=== PATIENT | female | born 1975 | race Caucasian/White ===

== ENCOUNTER → 2017-10-13 | Outpatient (CLI) | payer OTHER ==
[~2017-10-13] MED LIST: LISI20 PO; WATER PILL
[2017-10-15 12:30] LABS: HPV Genotype 16 Not Detected (NOTDET); HPV Genotype 18 Not Detected (NOTDET)
[2017-10-20 12:27] LABS: HPV High Risk Other Not Detected (NOTDET)
== END ==
LOC: LAB 18:09
PROVIDERS: Nurse Practitioner Family
DX: Z01.419 Encounter for gynecological examination (general) (routine) without abnormal findings (principal)
CPT/HCPCS: 87624; G0123

== ENCOUNTER 2020-07-16 05:26 | Emergency (ER) | payer OTHER ==
[~2020-07-16] VITALS: Ht 154.9 cm; Wt 89.4 kg
[2020-07-16] MEDS ORDERED: VENL75ER PO (05:49)
[2020-07-16] MEDS ORDERED: TRAM50 PO (07:05)
[2020-07-16] MEDS ORDERED: Voltaren100 GM TOP (07:07)
[2020-07-16] MEDS ORDERED: Robaxin-750750 MG PO (07:07)
== END 2020-07-16 07:20 | disposition home or self-care (01) ==
LOC: ER 05:26
DX: G89.29 Other chronic pain (principal); M54.5 Low back pain; Z79.899 Other long term (current) drug therapy; Z88.1 Allergy status to other antibiotic agents
CPT/HCPCS: 99283

== ENCOUNTER 2022-11-20 09:14 | Day surgery (SDC) | payer OTHER ==
[~2022-11-20] VITALS: Ht 154.9 cm; Wt 100.6 kg
[~2022-11-20 09:14] MED LIST changes: +Robaxin-750750 MG PO; +TRAM50 PO; +VENL75ER PO; +Voltaren100 GM TOP
[2022-11-20] MEDS ORDERED: Prinivil10 MG PO (10:24)
[2022-11-20 10:27] VITALS: BP 129/66
--- NOTE | 2022-11-20 10:38 | NUR ---
Ambulatory in Day Surgery. History, Chart, Medications and Allergies reviewed before start of procedure. Lungs clear T/O to Auscultation. Patient confirms NPO status and agrees with scheduled surgery. Pre-Op teaching done. Pt verbalizes understanding. Patient States Post-Procedure ride home has been arranged.
--- NOTE | 2022-11-20 10:50 | NUR ---
PT REPORTS TO HAVE A CLITORIS PIERCING THAT CANNOT BE REMOVED. SEDATION NURSE AND DR POSEY NOTIFIED.
--- NOTE | 2022-11-20 10:59 | NUR ---
11/20/22 1059 Rashawn Hugo ANESTHESIA PER DR. MIRELES, SEE ANESTHESIA RECORD
[2022-11-20 11:17] VITALS: BP 130/74
[2022-11-20 11:30] VITALS: BP 118/70
--- NOTE | 2022-11-20 11:40 | NUR ---
Patient up to Ambulate independently. Gait steady. Discharge instructions reviewed with patient. Patient verbalizes understanding. Copy given to patient to take home. Patient States Post-Procedure ride home has been arranged. Discharged via wheelchair to private car for ride home.
== END 2022-11-20 11:40 | disposition home or self-care (01) ==
LOC: ORSCMMR 09:14 → ORD 11:30 → ORSCMMR 11:30
PROVIDERS: Internal Medicine Gastroenterology
PROC: 0DJD8ZZ Inspection of Lower Intestinal Tract, Via Natural or Artificial Opening Endoscopic (ICD-10-PCS; principal; 2022-11-20 11:30)
DX: Z12.11 Encounter for screening for malignant neoplasm of colon (principal); I10 Essential (primary) hypertension; F32.A Depression, unspecified; E66.01 Morbid (severe) obesity due to excess calories; Z68.41 Body mass index [BMI] 40.0-44.9, adult; Z98.84 Bariatric surgery status; Z79.899 Other long term (current) drug therapy
CPT/HCPCS: J2704; J7120

== ENCOUNTER 2024-08-29 02:44 | Day surgery (SDC) | payer OTHER ==
[~2024-08-29 02:44] MED LIST changes: +Prinivil10 MG PO; +Sod Ferric Gluc Complx/Sucrose 125 MG in NS 100 ML IV SCH
[2024-08-29 10:15] VITALS: BP 143/88
== END 2024-08-29 11:42 | disposition home or self-care (01) ==
LOC: ATC 02:44
DX: E61.1 Iron deficiency (principal); Z98.84 Bariatric surgery status; Z88.8 Allergy status to other drugs, medicaments and biological substances
CPT/HCPCS: 96365; J2916

== ENCOUNTER 2024-09-02 03:28 | Day surgery (SDC) | payer OTHER ==
[~2024-09-02 03:28] MED LIST changes: -Sod Ferric Gluc Complx/Sucrose 125 MG in NS 100 ML IV SCH
[2024-09-02] MEDS ORDERED: Sod Ferric Gluc Complx/Sucrose 125 MG in NS 100 ML IV SCH (06:00)
[2024-09-02 14:32] VITALS: BP 126/78
== END 2024-09-02 15:35 | disposition home or self-care (01) ==
LOC: ATC 03:28
DX: E61.1 Iron deficiency (principal); I10 Essential (primary) hypertension; K21.9 Gastro-esophageal reflux disease without esophagitis; Z88.1 Allergy status to other antibiotic agents; Z79.899 Other long term (current) drug therapy
CPT/HCPCS: 96365; J2916

== ENCOUNTER 2024-09-06 01:15 | Day surgery (SDC) | payer OTHER ==
[~2024-09-06 01:15] MED LIST changes: +Sod Ferric Gluc Complx/Sucrose 125 MG in NS 100 ML IV SCH
[2024-09-06 15:20] VITALS: BP 142/82
== END 2024-09-06 16:32 | disposition home or self-care (01) ==
LOC: ATC 01:15
DX: E61.1 Iron deficiency (principal); Z98.84 Bariatric surgery status; Z79.899 Other long term (current) drug therapy; Z88.1 Allergy status to other antibiotic agents
CPT/HCPCS: 96365; J2916

== ENCOUNTER 2024-09-09 04:59 | Day surgery (SDC) | payer OTHER ==
[~2024-09-09 04:59] MED LIST changes: -Sod Ferric Gluc Complx/Sucrose 125 MG in NS 100 ML IV SCH
[2024-09-09] MEDS ORDERED: Sod Ferric Gluc Complx/Sucrose 125 MG in NS 100 ML IV SCH (06:50)
[2024-09-09 08:02] VITALS: BP 140/80
== END 2024-09-09 09:15 | disposition home or self-care (01) ==
LOC: ATC 04:59
DX: E61.1 Iron deficiency (principal); Z79.899 Other long term (current) drug therapy
CPT/HCPCS: 96365; J2916

== ENCOUNTER 2024-09-13 09:10 | Day surgery (SDC) | payer OTHER ==
[~2024-09-13 09:10] MED LIST changes: +Sod Ferric Gluc Complx/Sucrose 125 MG in NS 100 ML IV SCH
[2024-09-13 14:24] VITALS: BP 123/73
== END 2024-09-13 15:35 | disposition home or self-care (01) ==
LOC: ATC 09:10
DX: E61.1 Iron deficiency (principal); Z88.8 Allergy status to other drugs, medicaments and biological substances
CPT/HCPCS: 96365; J2916

== ENCOUNTER 2024-09-15 00:18 | Day surgery (SDC) | payer OTHER ==
[2024-09-15 14:10] VITALS: BP 133/76
== END 2024-09-15 15:16 | disposition home or self-care (01) ==
LOC: ATC 00:18
DX: E61.1 Iron deficiency (principal)
CPT/HCPCS: 96365; J2916

== ENCOUNTER 2024-09-20 00:37 | Day surgery (SDC) | payer OTHER ==
[~2024-09-20 00:37] MED LIST changes: -Sod Ferric Gluc Complx/Sucrose 125 MG in NS 100 ML IV SCH
[2024-09-20] MEDS ORDERED: Sod Ferric Gluc Complx/Sucrose 125 MG in NS 100 ML IV SCH (01:00)
[2024-09-20 07:55] VITALS: BP 132/65
== END 2024-09-20 09:11 | disposition home or self-care (01) ==
LOC: ATC 00:37
DX: E61.1 Iron deficiency (principal); I10 Essential (primary) hypertension; K21.9 Gastro-esophageal reflux disease without esophagitis; E66.813 Obesity, class 3; E66.01 Morbid (severe) obesity due to excess calories; Z68.41 Body mass index [BMI] 40.0-44.9, adult; Z88.1 Allergy status to other antibiotic agents; Z79.899 Other long term (current) drug therapy
CPT/HCPCS: 96365; J2916

== ENCOUNTER 2024-09-22 02:41 | Day surgery (SDC) | payer OTHER ==
[~2024-09-22 02:41] MED LIST changes: +Sod Ferric Gluc Complx/Sucrose 125 MG in NS 100 ML IV SCH
[2024-09-22 14:18] VITALS: BP 138/82
== END 2024-09-22 15:37 | disposition home or self-care (01) ==
LOC: ATC 02:41
DX: E61.1 Iron deficiency (principal); Z88.8 Allergy status to other drugs, medicaments and biological substances
CPT/HCPCS: 96365; J2916

== ENCOUNTER 2024-12-09 20:50 | Emergency (ER) | payer OTHER ==
[~2024-12-09] VITALS: Ht 154.9 cm; Wt 60.8 kg
[~2024-12-09 20:50] MED LIST changes: -Sod Ferric Gluc Complx/Sucrose 125 MG in NS 100 ML IV SCH
[2024-12-09 22:17] LABS: Albumin, Blood 3.2 g/dL (3.4-5.0); Bilirubin, Total 0.2 mg/dL (0.1-1.0); Bun/Creatinine Ratio 29.4 (12.0-20.0); Calcium, Blood 8.4 mg/dL (8.5-10.1); Creatinine, Blood 0.54 mg/dL (0.40-1.00); Globulin, Blood 3.1 g/dL (2.2-4.0); Total Protein, Blood 6.3 g/dL (6.4-8.2)
[2024-12-09 22:36] LABS: BASOPHILS ABSOLUTE AUTO 0.08 K/mm3 (0.00-0.23); BASOPHILS PERCENT AUTO 1 % (0-2); EOSINOPHILS ABSOLUTE AUTO 0.21 K/mm3 (0.00-0.68); EOSINOPHILS PERCENT AUTO 3 % (0-6); Hematocrit 38.4 % (33.0-51.0); Hemoglobin 12.5 g/dL (11.5-16.0); IMMATURE GRAN ABSOLUTE AUTO 0.02 K/mm3 (0.00-0.10); IMMATURE GRAN PERCENT AUTO 0 % (0-1); LYMPHOCYTES ABSOLUTE AUTO 1.35 K/mm3 (0.84-5.20); LYMPHOCYTES PERCENT AUTO 16 % (21-46); MONOCYTES ABSOLUTE AUTO 0.69 K/mm3 (0.16-1.47); MONOCYTES PERCENT AUTO 8 % (4-13); Mean Corpuscular HGB Conc 32.6 g/dL (31.5-36.5); Mean Corpuscular Volume 92 fL (80-100); NEUTROPHILS ABSOLUTE AUTO 6.22 K/mm3 (1.96-9.15); NEUTROPHILS PERCENT AUTO 73 % (41-73); Platelet Count 311 K/mm3 (150-400); RDW Coefficient Variation 13.2 % (11.7-14.2); RDW Standard Deviation 44.7 fL (35.1-46.3); Red Blood Cell Count 4.17 M/mm3 (3.80-5.20); White Blood Cell Count 8.57 K/mm3 (4.00-11.30)
[2024-12-09 23:11] LABS: Source, Urine Clean Catch
[2024-12-09 23:29] LABS: Bilirubin, Urine Neg (Neg); Blood, Urine Neg (Neg); Glucose Qualitative, Urine Neg (Neg); Ketones, Urine Neg (Neg); Leukocyte Esterase, Urine Neg (Neg); Nitrite, Urine Neg (Neg); Protein, Urine 2+ (Neg); Urobilinogen, Urine NORM (Normal)
[2024-12-09 23:41] LABS: Appearance, Urine Clear (Clear); Bacteria Not Seen /hpf; Calcium Oxalate Crystals Mod /hpf; Color, Urine Yellow (P-Yellow); Red Blood Cells, Urine Not Seen /hpf (0-2); Squamous Epithelial Cells Not Seen /hpf (Few); White Blood Cells, Urine 0-2 /hpf (0-5)
[2024-12-10 01:29] VITALS: BP 136/84
== END 2024-12-10 01:29 | disposition home or self-care (01) ==
LOC: ER 20:50
PROVIDERS: Student in an Organized Health Care Education/Training Program
DX: R10.13 Epigastric pain (principal); Z88.1 Allergy status to other antibiotic agents; Z87.891 Personal history of nicotine dependence
CPT/HCPCS: 74177; 80053; 81001; 83690; 84484; 85025; 93005; 93010; 99284-25; Q9967

== ENCOUNTER → 2025-04-18 | Outpatient (CLI) | payer OTHER | LOC: LAB 17:10 → LAB SHORT 17:10 | DX: R35.0 Frequency of micturition (principal) | CPT/HCPCS: 87077; 87086; 87186; 87335 ==